=== PATIENT | female | born 1985 ===

== ENCOUNTER 2020-05-27 17:22 | Inpatient (IN) ==
[2020-05-27] MEDS ORDERED: Al Hydrox/Mg Hydrox/Simet LIQ 30 ML UDC PO PRN (21:57)
[2020-05-27] MEDS ORDERED: Nicotine GUM 2MG FRUIT FLAVOR PO PRN (22:00)
[2020-05-28] MEDS: Vitamin THERAPEUTIC TAB PO SCH (08:32)
[2020-05-28] MEDS ORDERED: OLANzapine 5 mg TAB*ODT PO SCH (21:00)
[2020-05-29] MEDS: OLANzapine 5 mg TAB*ODT PO PRN (12:45)
[2020-05-29] MEDS: Vitamin THERAPEUTIC TAB PO SCH (12:45)
[2020-05-30] MEDS: Vitamin THERAPEUTIC TAB PO SCH (12:00)
[2020-05-31 07:04] LABS: ABS Eosinophils 0.1 10^3/ul (0-0.6); ABS Lymphocytes 1.8 10^3/ul (1.0-4.8); ABS Monocytes 0.4 10^3/ul (0-0.8); ABS Neutrophils 3.3 10^3/ul (1.5-7.7); Eosinophil % 2.1 %; Hematocrit 38 % (35-47); Hemoglobin 12.5 g/dL (12.0-16.0); Lymphocyte % 31.5 %; Mean Corpuscular HGB Conc 33 g/dL (31-36); Mean Corpuscular Hemoglobin 29 pg (27-31); Mean Corpuscular Volume 88 fL (80-97); Mean Platelet Volume 8.9 fL (7.4-10.4); Nucleated Red Blood Cells % 0.1; Platelet Count 249 10^3/uL (150-450); Red Blood Count 4.32 10^6 /uL (3.70-4.87); Red Cell Distribution Width 14 % (10-15); White Blood Count 5.6 10^3/uL (3.5-10.8)
[2020-05-31 07:23] LABS: Albumin 3.5 g/dL (3.2-5.2); Albumin/Globulin Ratio 1.1 (1-3); Calcium 8.8 mg/dL (8.6-10.3); EGFR African American 95.2 (>60); EGFR Non-African American 78.7 (>60); Globulin 3.1 g/dL (2-4); HDL Cholesterol 48.1 mg/dL; Potassium 4.1 mmol/L (3.5-5.0); Total Bilirubin 0.3 mg/dL (0.2-1.0); Total Protein 6.6 g/dL (6.4-8.9)
[2020-05-31] MEDS: Vitamin THERAPEUTIC TAB PO SCH ×2 (09:08→12:45)
[2020-05-31] MEDS: OLANzapine 5 mg TAB*ODT PO PRN (12:45)
[2020-06-01 12:21] LABS: HCG Pregnancy 0.77 mIU/mL
[2020-06-01] MEDS: Vitamin THERAPEUTIC TAB PO SCH (12:23)
[2020-06-02] MEDS: Vitamin THERAPEUTIC TAB PO SCH (10:57)
[2020-06-02] MEDS ORDERED: OLANzapine 5 mg TAB*ODT PO SCH (21:00)
[2020-06-03] MEDS: Vitamin THERAPEUTIC TAB PO SCH (07:55)
[2020-06-04] MEDS: Vitamin THERAPEUTIC TAB PO SCH (11:58)
[2020-06-05] MEDS: Vitamin THERAPEUTIC TAB PO SCH (09:47)
[2020-06-06] MEDS: Vitamin THERAPEUTIC TAB PO SCH (11:08)
[2020-06-07] MEDS: Vitamin THERAPEUTIC TAB PO SCH (07:55)
[2020-06-08] MEDS: Vitamin THERAPEUTIC TAB PO SCH (12:20)
[2020-06-09] MEDS: Vitamin THERAPEUTIC TAB PO SCH (13:46)
[2020-06-10] MEDS: Vitamin THERAPEUTIC TAB PO SCH (10:38)
[2020-06-11] MEDS: Vitamin THERAPEUTIC TAB PO SCH (11:11)
[2020-06-12] MEDS: Vitamin THERAPEUTIC TAB PO SCH (08:51)
[2020-06-13] MEDS: Vitamin THERAPEUTIC TAB PO SCH (08:57)
[2020-06-14] MEDS: Vitamin THERAPEUTIC TAB PO SCH (10:17)
[2020-06-15] MEDS: Vitamin THERAPEUTIC TAB PO SCH (09:26)
[2020-06-16] MEDS: Vitamin THERAPEUTIC TAB PO SCH (08:51)
[2020-06-17] MEDS: Vitamin THERAPEUTIC TAB PO SCH (08:52)
[2020-06-18] MEDS: Vitamin THERAPEUTIC TAB PO SCH (07:50)
[2020-06-19] MEDS: Vitamin THERAPEUTIC TAB PO SCH (12:36)
[2020-06-20] MEDS: Vitamin THERAPEUTIC TAB PO SCH (12:00)
[2020-06-21] MEDS: Vitamin THERAPEUTIC TAB PO SCH (12:22)
[2020-06-22] MEDS: Vitamin THERAPEUTIC TAB PO SCH (13:11)
[2020-06-23] MEDS: Vitamin THERAPEUTIC TAB PO SCH (08:28)
[2020-06-24] MEDS: Vitamin THERAPEUTIC TAB PO SCH (08:09)
[2020-06-25] MEDS: Vitamin THERAPEUTIC TAB PO SCH (07:50)
[2020-06-26] MEDS: Vitamin THERAPEUTIC TAB PO SCH (07:54)
== END 2020-06-26 09:10 | DRG 885 ==
LOC: BSU 20:58
PROVIDERS: ADMIT Psychiatry & Neurology Psychiatry; ATTEND Psychiatry & Neurology Psychiatry